=== PATIENT | male | born 1985 | race Caucasian/White ===

== ENCOUNTER 2021-05-13 23:08 | Emergency (ER) | payer OTHER ==
[~2021-05-13] VITALS: Ht 170.2 cm; Wt 82.3 kg
[2021-05-13 23:16] VITALS: BP 111/69
--- NOTE | 2021-05-14 | NUR ---
PATIENT REFUSING XRAY AT THIS TIME STATING HE DOESNT HAVE INSURANCE AND WOULD LIKE TO HOLD OFF. WILL UPDATE .
--- NOTE | 2021-05-14 00:11 | NUR ---
Patient given discharge instructions and they have confirmed that they understand the instructions. Patient ambulatory with steady gait. NAD, all questions answered appropriately, denies additional needs at this time. No personal belongings left in room after discharge.
== END 2021-05-14 00:12 | disposition home or self-care (01) ==
LOC: ED 23:59
DX: U07.1 COVID-19 (principal); J12.9 Viral pneumonia, unspecified; G44.209 Tension-type headache, unspecified, not intractable
CPT/HCPCS: 93005; 99283